=== PATIENT | male | born 1940 | race Caucasian/White ===

== ENCOUNTER 2022-05-05 04:25 | Inpatient (IN) | payer MEDICARE, BC ==
[~2022-05-05] VITALS: Ht 170.2 cm; Wt 122.7 kg
[2022-05-05] MEDS ORDERED: hydrALAZINE 20mg/ml inj. IV ONE (05:05)
[2022-05-05] MEDS ORDERED: nitroGLYCERIN-Tridil 50MG/D5W 250 ML IV SCH (05:30)
[2022-05-05 05:35] LABS: BASOPHILS % (AUTO) 0.3 % (0-1); EOSINOPHILS # (AUTO) 0.1 X10'3 (0-0.9); EOSINOPHILS % (AUTO) 0.7 % (0-6); HEMATOCRIT 41.8 % (42.0-52.0); HEMOGLOBIN 13.7 g/dl (14.0-17.9); LYMPHOCYTES # (AUTO) 0.7 X10'3 (1.1-4.8); LYMPHOCYTES % (AUTO) 4.6 % (21-51); MEAN CORPUSCULAR HEMOGLOBIN 29.9 PG (27.0-31.0); MEAN CORPUSCULAR HGB CONC 32.7 g/dL (33.0-36.5); MEAN CORPUSCULAR VOLUME 91.3 FL (78-98); MEAN PLATELET VOLUME 9.6 FL (7.4-10.4); MONOCYTES # (AUTO) 1.4 X10'3 (0-0.9); MONOCYTES % (AUTO) 9.2 % (2-12); NEUTROPHILS # (AUTO) 13.5 X10'3 (1.8-7.7); NEUTROPHILS % (AUTO) 85.2 % (42-75); PLATELET COUNT 207 X10'3 (140-440); RED BLOOD COUNT 4.58 X10'6 (4.70-6.10); RED CELL DISTRIBUTION WIDTH 14.7 % (11.5-14.5); WHITE BLOOD COUNT 15.8 X10'3 (4.5-11.0)
[2022-05-05] MEDS ORDERED: nitroGLYCERIN-Tridil 50MG/D5W 250 ML IV PRN (05:35)
[2022-05-05 05:56] LABS: TOTAL CELLS COUNTED 100
[2022-05-05 05:57] LABS: PLATELET ESTIMATE NORMAL
[2022-05-05] MEDS: nitroGLYCERIN-Tridil 50MG/D5W 250 ML IV SCH (06:29)
[2022-05-05 07:20] LABS: ALANINE AMINOTRANSFERASE 23 U/L (12-78); ALBUMIN 3.7 G/DL (3.4-5.0); ALBUMIN/GLOBULIN RATIO 1.2 (1.1-1.5); ALKALINE PHOSPHATASE 68 IU/L (46-116); ANION GAP 9 (8-16); ASPARTATE AMINO TRANSFERASE 22 U/L (10-37); BILIRUBIN,TOTAL 1.3 MG/DL (0.1-1.0); BLOOD UREA NITROGEN 12 MG/DL (7-18); BUN/CREATININE RATIO 11.9 (5.4-32.0); CALCIUM 8.8 MG/DL (8.5-10.1); CHLORIDE 101 MMOL/L (99-107); CREATININE 1.01 MG/DL (0.60-1.10); GLUCOSE 134 MG/DL (70-104); MAGNESIUM 1.8 MG/DL (1.5-2.4); POTASSIUM 3.7 MMOL/L (3.5-5.1); SODIUM 138 MMOL/L (135-145); TOTAL CARBON DIOXIDE 28.2 MMOL/L (24-32); TOTAL PROTEIN 6.8 G/DL (6.4-8.2); eGFR 71 ML/MIN
[2022-05-05] MEDS ORDERED: morphine 2 MG/ML inj. syringe IV PRN (08:35)
[2022-05-05] MEDS ORDERED: magnesium 4gm in 100ml NS 100 ML IV PRN (08:35)
[2022-05-05] MEDS ORDERED: ondansetron/PF 4mg/2ml inj IV PRN (08:35)
[2022-05-05] MEDS ORDERED: HYDROcodone/acetaminophen 10/325mg tab PO PRN (08:35)
[2022-05-05] MEDS ORDERED: potassium Cl 40MEQ/1/2NS 520ml 520 ML IV PRN (08:35)
[2022-05-05] MEDS ORDERED: magnesium Cl slow-release 64mg tablet PO PRN (08:35)
[2022-05-05] MEDS ORDERED: acetaminophen 325mg tablet PO PRN (08:35)
[2022-05-05] MEDS ORDERED: HYDROcodone/acetaminophen 5mg/325mg tablet PO PRN (08:35)
[2022-05-05] MEDS ORDERED: potassium Cl 20 mEq SR tablet PO PRN ×2 (08:35)
[2022-05-05] MEDS ORDERED: magnesium hydroxide 30ml (MOM) UD suspension PO PRN (08:35)
[2022-05-05] MEDS ORDERED: mag hydrox/Alum hydrox/simeth 30ml oral suspension PO PRN (08:35)
[2022-05-05] MEDS: furosemide 10 MG/1 ML 10ml inj IV SCH (08:55)
[2022-05-05] MEDS ORDERED: FURO20TA4 PO (12:40)
[2022-05-05] MEDS ORDERED: FINA5TAB11 PO (12:40)
[2022-05-05] MEDS ORDERED: METF-1203 PO (12:40)
[2022-05-05] MEDS ORDERED: OMEP20CA16 PO (12:40)
[2022-05-05] MEDS ORDERED: FLO0.4C PO (12:40)
[2022-05-05] MEDS ORDERED: APIX5TAB3 PO (12:40)
[2022-05-05] MEDS ORDERED: LOSA100T57 PO (12:40)
[2022-05-05] MEDS ORDERED: CARV25TA2 PO (12:40)
[2022-05-05] MEDS ORDERED: SIMV-42 PO (12:40)
[2022-05-05] MEDS ORDERED: dextrose 50%-water 50ml dispensing syringe IV PRN ×2 (15:10)
[2022-05-05] MEDS ORDERED: DEXTROSE 15 GM of carb/4 tabs (each vial/BOTTLE has 4 tablets) PO PRN ×2 (15:10)
[2022-05-05] MEDS ORDERED: glucagon, human recombinant 1mg kit SUBCUT PRN (15:10)
[2022-05-05] MEDS ORDERED: MESSAGE TO PHARMACY PO ONE (15:10)
[2022-05-05] MEDS ORDERED: insulin Lispro (HumaLOG) vial - multi-dose SQ SCH (15:10)
[2022-05-05 15:50] LABS: HEMOGLOBIN A1C 6.2 % (4.5-6.2)
[2022-05-05] MEDS: K and/or MAG REPLACEMENT MC SCH (18:59)
[2022-05-05] MEDS: docusate sod 100mg capsule PO SCH (20:43)
[2022-05-05] MEDS: atorvastatin 10mg tablet PO SCH (20:43)
[2022-05-05] MEDS: apixaban 5mg tablet PO SCH (20:44)
[2022-05-05] MEDS: carVEDilol 12.5mg tablet PO SCH (20:44)
[2022-05-05] MEDS: insulin glargine (Lantus) pen - multi-dose SQ SCH (20:58)
--- NOTE | 2022-05-06 03:06 | NUR ---
Dr. Abbasi called about nitroglycerin drip. Pt. SOB improved and blood pressures [address] Abbasi stated the Nitrogycerin drip could be stopped and to call him if pt's blood pressures increased, or SOB worsened.
[2022-05-06 05:17] LABS: BASOPHILS # (AUTO) 0.1 X10'3 (0-0.2); BASOPHILS % (AUTO) 0.5 % (0-1); EOSINOPHILS # (AUTO) 0.1 X10'3 (0-0.9); EOSINOPHILS % (AUTO) 0.6 % (0-6); HEMATOCRIT 37.6 % (42.0-52.0); HEMOGLOBIN 12.6 g/dl (14.0-17.9); LYMPHOCYTES # (AUTO) 0.8 X10'3 (1.1-4.8); LYMPHOCYTES % (AUTO) 6.3 % (21-51); MEAN CORPUSCULAR HEMOGLOBIN 30.8 PG (27.0-31.0); MEAN CORPUSCULAR HGB CONC 33.7 g/dL (33.0-36.5); MEAN CORPUSCULAR VOLUME 91.5 FL (78-98); MEAN PLATELET VOLUME 8.3 FL (7.4-10.4); MONOCYTES # (AUTO) 1.8 X10'3 (0-0.9); MONOCYTES % (AUTO) 14.2 % (2-12); NEUTROPHILS # (AUTO) 9.8 X10'3 (1.8-7.7); NEUTROPHILS % (AUTO) 78.4 % (42-75); PLATELET COUNT 182 X10'3 (140-440); RED BLOOD COUNT 4.11 X10'6 (4.70-6.10); RED CELL DISTRIBUTION WIDTH 14.5 % (11.5-14.5); WHITE BLOOD COUNT 12.5 X10'3 (4.5-11.0)
[2022-05-06 05:38] LABS: ALANINE AMINOTRANSFERASE 23 U/L (12-78); ALBUMIN 3.1 G/DL (3.4-5.0); ALBUMIN/GLOBULIN RATIO 0.9 (1.1-1.5); ALKALINE PHOSPHATASE 56 IU/L (46-116); ANION GAP 10 (8-16); ASPARTATE AMINO TRANSFERASE 20 U/L (10-37); BILIRUBIN,TOTAL 1.3 MG/DL (0.1-1.0); BLOOD UREA NITROGEN 14 MG/DL (7-18); BUN/CREATININE RATIO 14.4 (5.4-32.0); CALCIUM 8.5 MG/DL (8.5-10.1); CHLORIDE 102 MMOL/L (99-107); CREATININE 0.97 MG/DL (0.60-1.10); GLUCOSE 115 MG/DL (70-104); SODIUM 139 MMOL/L (135-145); TOTAL CARBON DIOXIDE 27.5 MMOL/L (24-32); TOTAL PROTEIN 6.5 G/DL (6.4-8.2); eGFR 74 ML/MIN
[2022-05-06] MEDS: metFORMIN 500mg tablet PO SCH (07:55)
[2022-05-06] MEDS: tamsulosin 0.4mg capsule PO SCH (07:55)
[2022-05-06] MEDS: losartan 50mg tablet PO SCH (07:55)
[2022-05-06] MEDS: apixaban 5mg tablet PO SCH ×2 (07:55→21:55)
[2022-05-06] MEDS: docusate sod 100mg capsule PO SCH ×2 (07:56→21:54)
[2022-05-06] MEDS: pantoprazole 40mg Tablet.DR PO SCH (07:56)
[2022-05-06] MEDS: carVEDilol 12.5mg tablet PO SCH ×2 (07:56→21:56)
[2022-05-06] MEDS: furosemide 10 MG/1 ML 10ml inj IV SCH (07:57)
[2022-05-06] MEDS: K and/or MAG REPLACEMENT MC SCH ×2 (07:57→20:00)
[2022-05-06] MEDS ORDERED: furosemide 20MG tablet PO SCH (08:00)
[2022-05-06] MEDS ORDERED: enoxaparin 40mg/0.4ml syringe SUBCUT SCH (08:00)
[2022-05-06] MEDS: finasteride 5mg tablet PO SCH (08:04)
--- NOTE | 2022-05-06 10:06 | NUR ---
Received report from ER nurse Alonzo RN Patient is going to come up on a hospital bed.
--- NOTE | 2022-05-06 10:15 | NUR ---
Patient arrived to floor on a hospital bed. No complaints of pain or discomfort noted at this time. Call light is in reach, BLL.
[2022-05-06 10:42] VITALS: BP 104/65
--- NOTE | 2022-05-06 13:28 | NUR ---
DM consult: Per EMR pt with T2DM, well controlled with A1c 6.2%, DM education not warranted at this time. Recommend liberalizing to regular diet in view of geriatric age, A1c, and BG range 100-134 mg/dL since admit. Will continue to follow. Addendum: 05/06/22 at [address] Amended: Links added.
[2022-05-06 16:00] VITALS: BP 133/62
[2022-05-06 18:00] VITALS: BP 128/77
--- NOTE | 2022-05-06 18:07 | NUR ---
I agree with [facility] assessment. -David Carrasco, RN
--- NOTE | 2022-05-06 18:39 | NUR ---
Problems reprioritized. Patient report given, questions answered & plan of care reviewed with Abeba GALLEGOS.
[2022-05-06] MEDS: insulin glargine (Lantus) pen - multi-dose SQ SCH (21:00)
[2022-05-06] MEDS: atorvastatin 10mg tablet PO SCH (21:55)
[2022-05-06] MEDS ORDERED: albuterol 2.5 MG/3 ML nebule NEB PRN (22:30)
[2022-05-07 02:00] VITALS: BP 108/73
[2022-05-07 05:54] LABS: BASOPHILS % (AUTO) 0.3 % (0-1); EOSINOPHILS # (AUTO) 0.2 X10'3 (0-0.9); EOSINOPHILS % (AUTO) 1.5 % (0-6); HEMATOCRIT 41.3 % (42.0-52.0); HEMOGLOBIN 13.7 g/dl (14.0-17.9); LYMPHOCYTES # (AUTO) 0.8 X10'3 (1.1-4.8); LYMPHOCYTES % (AUTO) 6.8 % (21-51); MEAN CORPUSCULAR HEMOGLOBIN 30.5 PG (27.0-31.0); MEAN CORPUSCULAR HGB CONC 33.2 g/dL (33.0-36.5); MEAN CORPUSCULAR VOLUME 91.9 FL (78-98); MEAN PLATELET VOLUME 8.1 FL (7.4-10.4); MONOCYTES % (AUTO) 16.5 % (2-12); NEUTROPHILS % (AUTO) 74.9 % (42-75); PLATELET COUNT 189 X10'3 (140-440); RED BLOOD COUNT 4.49 X10'6 (4.70-6.10); RED CELL DISTRIBUTION WIDTH 14.7 % (11.5-14.5)
[2022-05-07 06:10] VITALS: BP 142/60
[2022-05-07] MEDS: nitroGLYCERIN-Tridil 50MG/D5W 250 ML IV SCH (06:15)
[2022-05-07 06:20] LABS: ALANINE AMINOTRANSFERASE 23 U/L (12-78); ALBUMIN 3.6 G/DL (3.4-5.0); ALBUMIN/GLOBULIN RATIO 1.1 (1.1-1.5); ALKALINE PHOSPHATASE 63 IU/L (46-116); ANION GAP 8 (8-16); ASPARTATE AMINO TRANSFERASE 17 U/L (10-37); BLOOD UREA NITROGEN 16 MG/DL (7-18); BUN/CREATININE RATIO 15.5 (5.4-32.0); CHLORIDE 102 MMOL/L (99-107); CHOLESTEROL 110 MG/DL (0-200); CREATININE 1.03 MG/DL (0.60-1.10); GLUCOSE 99 MG/DL (70-104); HDL CHOLESTEROL 54 MG/DL (35-60); LDL CHOLESTEROL 52 MG/DL (50-100); POTASSIUM 3.5 MMOL/L (3.5-5.1); SODIUM 139 MMOL/L (135-145); TOTAL CARBON DIOXIDE 29.4 MMOL/L (24-32); TRIGLYCERIDES 54 MG/DL (20-135); eGFR 69 ML/MIN
[2022-05-07 06:22] LABS: TOTAL CELLS COUNTED 100
[2022-05-07 06:23] LABS: LARGE PLATELETS FEW; PLATELET ESTIMATE NORMAL
[2022-05-07] MEDS: furosemide 10 MG/1 ML 10ml inj IV SCH (07:41)
[2022-05-07] MEDS: tamsulosin 0.4mg capsule PO SCH (07:41)
[2022-05-07] MEDS: losartan 50mg tablet PO SCH (07:42)
[2022-05-07] MEDS: apixaban 5mg tablet PO SCH (07:42)
[2022-05-07] MEDS: carVEDilol 12.5mg tablet PO SCH (07:42)
[2022-05-07] MEDS: metFORMIN 500mg tablet PO SCH (07:42)
[2022-05-07] MEDS: pantoprazole 40mg Tablet.DR PO SCH (07:42)
[2022-05-07] MEDS: docusate sod 100mg capsule PO SCH (07:42)
[2022-05-07] MEDS: finasteride 5mg tablet PO SCH (07:43)
[2022-05-07] MEDS: K and/or MAG REPLACEMENT MC SCH (08:00)
[2022-05-07] MEDS ORDERED: ALBU2.5V7 NEB (08:57)
[2022-05-07] MEDS ORDERED: FURO40TA4 PO (08:57)
[2022-05-07] MEDS ORDERED: FLUT1BLS16 IH (08:59)
[2022-05-07 10:45] VITALS: BP 107/51
--- NOTE | 2022-05-07 12:21 | NUR ---
Pt discharged to home, accompanied by . IV and telemetry discontinued. Pt verbalized understanding of all discharge instructions.
== END 2022-05-07 12:20 | disposition home or self-care (01) | DRG 291 ==
LOC: ER 04:27 → ED HOLD 08:45 → PCU 3S 05-06 10:23
PROVIDERS: ADMIT Internal Medicine; ATTEND Internal Medicine
DX: I11.0 Hypertensive heart disease with heart failure (principal); I50.33 Acute on chronic diastolic (congestive) heart failure; L03.115 Cellulitis of right lower limb; Z68.41 Body mass index [BMI] 40.0-44.9, adult; L03.116 Cellulitis of left lower limb; I44.4 Left anterior fascicular block; I48.0 Paroxysmal atrial fibrillation; D64.9 Anemia, unspecified; D72.829 Elevated white blood cell count, unspecified; E11.9 Type 2 diabetes mellitus without complications; E66.01 Morbid (severe) obesity due to excess calories; I50.9 Heart failure, unspecified; R19.7 Diarrhea, unspecified; E78.00 Pure hypercholesterolemia, unspecified; J44.9 Chronic obstructive pulmonary disease, unspecified; R09.02 Hypoxemia; Z79.01 Long term (current) use of anticoagulants; Z79.899 Other long term (current) drug therapy; Z87.891 Personal history of nicotine dependence
CPT/HCPCS: 36415; 71045; 80053; 80061; 82948; 83036; 83735; 83880; 84145; 84484; 85007; 85025; 87081; 93005; 93306; 94640; 94760; 99285; A4615; G0378; J0360; J1815; J1940; J3490; J7030

== ENCOUNTER 2022-10-21 11:25 | Day surgery (SDC) | payer MEDICARE, BC ==
[~2022-10-21] VITALS: Ht 170.2 cm; Wt 97.1 kg
[2022-10-21] VITALS (7 sets, daily range): BP systolic 101–159; BP diastolic 44–82
[~2022-10-21 11:25] MED LIST: ALBU2.5V7 NEB; APIX5TAB3 PO; CARV25TA2 PO; FINA5TAB11 PO; FLO0.4C PO; FLUT1BLS16 IH; LOSA100T58 PO; METF-1203 PO; OMEP20CA16 PO; SIMV-42 PO
[2022-10-21] MEDS ORDERED: LORazepam 0.5 MG tablet PO PRN (11:45)
[2022-10-21] MEDS ORDERED: normal saline 1,000 ML IV SCH (11:45)
[2022-10-21] MEDS ORDERED: AMIO200T27 PO (12:06)
[2022-10-21] MEDS ORDERED: EMPA10TA PO (12:06)
[2022-10-21] MEDS ORDERED: SPIR25TA PO (12:06)
[2022-10-21] MEDS ORDERED: SACU1TAB7 PO (12:06)
[2022-10-21] MEDS ORDERED: FURO-150 PO (12:06)
[2022-10-21] MEDS ORDERED: UMEC1DIS INH (12:06)
[2022-10-21] MEDS ORDERED: LIDOcaine 1% 30ml preserv. free vial ONE (12:14)
[2022-10-21] MEDS ORDERED: iohexol 350 MG/ML 50ML vial IV ONE (12:14)
[2022-10-21] MEDS ORDERED: fentaNYL/PF 50MCG/1 ML 2ML syringe ONE (12:14)
[2022-10-21] MEDS ORDERED: midazolam 1 mg/ML 2ml injection ONE ×2 (12:14→13:57)
[2022-10-21] MEDS ORDERED: HYDROcodone/acetaminophen 5mg/325mg tablet PO PRN (15:20)
[2022-10-21] MEDS ORDERED: HYDROcodone/acetaminophen 10/325mg tab PO PRN (15:20)
[2022-10-22 06:37] LABS: ISTAT Hct MIX 43 %PCV (42-52); ISTAT O2 SATURATION MIX VENOUS 63 % (60-80); ISTAT SOURCE VEN
== END 2022-10-21 17:10 | disposition home or self-care (01) ==
LOC: SSTAY O 11:25
PROVIDERS: ATTEND Student in an Organized Health Care Education/Training Program
DX: I11.0 Hypertensive heart disease with heart failure (principal); I50.32 Chronic diastolic (congestive) heart failure; E11.9 Type 2 diabetes mellitus without complications; G47.33 Obstructive sleep apnea (adult) (pediatric); I27.20 Pulmonary hypertension, unspecified; I48.91 Unspecified atrial fibrillation; E78.5 Hyperlipidemia, unspecified; Z79.84 Long term (current) use of oral hypoglycemic drugs; Z79.01 Long term (current) use of anticoagulants; Z79.899 Other long term (current) drug therapy
CPT/HCPCS: 33289; 36415; 82803; 82948; 85014; 85610; 93005; 99152; 99153; C2624; J1644; J2250; J3010; J3490; J7030; Q9967; A6258; A6402; C1751; C1769; C1894